=== PATIENT | female | born 1965 | race African-American/Black ===

== ENCOUNTER 2021-08-05 11:55 | Inpatient (IN) ==
[~2021-08-05 11:55] MED LIST: CLORAZEPATE 3.75 MG TABLET PO PRN; DEXTROSE 10% 250 ML BAG IV PRN; GLUCAGON 1 MG VIAL IM PRN; MORPHINE 2 MG/1 ML SYRINGE IV PRN; NITROGLYCERIN SL 0.4 MG TABLET SL PRN
[2021-08-05] MEDS ORDERED: SODIUM CHLORIDE 0.9% 1,000 ML IV SCH (14:00)
[2021-08-05 14:12] LABS: Basophils % 0.4 % (0.0-0.8); Eosinophils # 0.4 10*3/uL (0.0-0.87); Eosinophils % 4.8 % (0.00-10.9); Hemoglobin 11.5 GM/DL (12.0-16.0); Immature Granulocytes % 0.3 %; Immature Granulocytes Absolute 0.02 #; Lymphocytes # 4.2 10*3/uL (1.4-4.0); Lymphocytes % 57.2 % (21.3-54.2); Mean Corpuscular HGB Conc 31.9 GM/DL (32-36); Mean Corpuscular Volume 89.8 FL (87-102); Mean Platelet Volume 10.1 FL (9.6-12.0); Monocytes # 0.5 10*3/uL (0.11-0.8); Monocytes % 7.2 % (1.7-12.7); Neutrophils % 30.1 % (38.7-73.9); Platelet Count 261 T/CUMM (130-400); Red Blood Count 4.01 MC/CUMM (3.8-5.5); Red Cell Distribution Width 14.6 % (9.3-17.3); White Blood Count 7.3 T/CUMM (4-12)
[2021-08-05 14:33] LABS: Alanine Aminotransferase 19 U/L (13-56); Albumin 3.5 G/DL (3.4-5.0); Alkaline Phosphatase 52 U/L (45-117); Aspartate Amino Transferase 14 U/L (0-37); Bilirubin,Total < 0.39 MG/DL (0.20-1.00); Blood Urea Nitrogen 14 MG/DL (7-18); Calcium 9.1 MG/DL (8.5-10.1); Carbon Dioxide 31 MMOL/L (21-32); Chloride 106 MMOL/L (98-107); Glucose 101 MG/DL (74-106); Osmolality,Calculated 281.3 MOS/KG (273-304); Potassium 3.8 MMOL/L (3.5-5.1); Sodium 141 MMOL/L (136-145); Total Protein 7.8 G/DL (6.4-8.2)
[2021-08-05 14:35] LABS: Eosinophils 7 % (0-10); Lymphocytes 61 % (20-55); Total Cells Counted 100
[2021-08-05 14:36] LABS: Platelet Estimate Adequate
[2021-08-05 15:11] LABS: Arterial Base Excess iSTAT 3 MMOL/L (-2.5-2.5); Arterial Bicarbonate iSTAT 28.3 MMOL/L (20-26); Arterial O2 Saturation iSTAT 93 % (95-100); Arterial PCO2 iSTAT 44 MM HG (35-48); Arterial PO2 iSTAT 68 MM HG (80-95); Arterial Total CO2 iSTAT 30 MMO/L (23-27)
[2021-08-05] MEDS ORDERED: PANTOPRAZOLE 40 MG TABLET PO ONE (15:42)
[2021-08-05] MEDS ORDERED: DIAZEPAM 5 MG TABLET PO ONE (15:42)
[2021-08-05] MEDS: GABAPENTIN 300 MG CAPSULE PO SCH ×2 (15:58→21:18)
[2021-08-05] MEDS: METHOCARBAMOL 500 MG TABLET PO SCH ×2 (15:59→21:18)
[2021-08-05] MEDS: CHLORHEXIDINE 4% SOLN 118 ML BOTTLE TOP SCH ×2 (16:05→21:20)
[2021-08-05] MEDS: INSULIN REGULAR 100 UNIT/ML SUBCUT SCH ×2 (16:06→21:20)
[2021-08-05] MEDS ORDERED: DOXEPIN 25 MG CAPSULE PO SCH (21:00)
[2021-08-05] MEDS ORDERED: LATANOPROST 0.005% OPH SOLN 2.5 ML BOTTLE BOTH EYES SCH (21:00)
[2021-08-05] MEDS: risperiDONE 1 MG TABLET PO SCH (21:18)
[2021-08-05] MEDS: DIVALPROEX 500 MG TABLET PO SCH (21:19)
[2021-08-05] MEDS: CHLORHEXIDINE 0.12% ORAL RINSE 60 ML BOTTLE SWISH/SPIT SCH (21:20)
[2021-08-06] MEDS: CHLORHEXIDINE 4% SOLN 118 ML BOTTLE TOP SCH (04:06)
[2021-08-06] MEDS ORDERED: PAPAVERINE 60 MG/2 ML VIAL ONE (04:18)
[2021-08-06] MEDS ORDERED: VANCOMYCIN 500 MG VIAL ONE ×2 (04:19→08:26)
[2021-08-06] MEDS ORDERED: VANCOMYCIN 1,000 MG VIAL ONE (04:19)
[2021-08-06] MEDS ORDERED: CEFUROXIME INJ 1,500 MG in SODIUM CHLORIDE 0.9% 100 ML IV ONE (05:00)
[2021-08-06] MEDS ORDERED: PANTOPRAZOLE 40 MG TABLET PO ONE (06:00)
[2021-08-06] MEDS: INSULIN REGULAR 100 UNIT/ML SUBCUT SCH ×2 (06:00→17:06)
[2021-08-06] MEDS ORDERED: DIAZEPAM 5 MG TABLET PO ONE (06:00)
[2021-08-06] MEDS ORDERED: MIDAZOLAM 10 MG/2 ML VIAL ONE ×4 (06:07→09:40)
[2021-08-06] MEDS ORDERED: SUFentanil 250 MCG/5 ML AMP ONE ×2 (06:08→08:04)
[2021-08-06] MEDS ORDERED: SEVOFLURANE 1 UNIT/15 MINUTE INH ONE (06:08)
[2021-08-06] MEDS ORDERED: LACTATED RINGERS 1,000 ML IV ONE (06:11)
[2021-08-06] MEDS ORDERED: CALCIUM CHLORIDE 1,000 MG/10 ML VIAL IV ONE ×2 (06:11→10:31)
[2021-08-06] MEDS ORDERED: AMINOCAPROIC ACID 5,000 MG/20 ML VIAL ONE (06:11)
[2021-08-06] MEDS ORDERED: PHENYLEPHRINE DRIP 20 MG/250 ML PREMIX IV ONE (06:11)
[2021-08-06] MEDS ORDERED: SODIUM CHLORIDE 0.9% 250 ML IV ONE (06:11)
[2021-08-06] MEDS ORDERED: MINERAL OIL/PETROLATUM OPH OINT 3.5 GM TUBE ONE (06:11)
[2021-08-06] MEDS ORDERED: SODIUM CHLORIDE 0.9% 100 ML IV ONE (06:11)
[2021-08-06] MEDS ORDERED: LIDOCAINE 2% 5 ML VIAL ONE (06:11)
[2021-08-06] MEDS ORDERED: VECURONIUM 10 MG VIAL IV ONE ×3 (06:11→09:40)
[2021-08-06] MEDS ORDERED: SODIUM CHLORIDE 0.9% 1,000 ML IV ONE (06:11)
[2021-08-06] MEDS ORDERED: HEPARIN/NACL 0.9% 2 UNITS/ML 1,000 UNIT/500 ML BAG IV ONE (06:11)
[2021-08-06] MEDS ORDERED: FAMOTIDINE 20 MG/2 ML VIAL IV ONE (06:15)
[2021-08-06 07:28] LABS: ABG Base Excess 0.9 MMOL/L (-2.5-2.5); ABG HCO3 25.2 MMOL/L (20-26); ABG PCO2 33.4 MM HG (35-48); ABG PH 7.466 (7.35-7.45); ABG TCO2 21.7 MMOL/L (23-27); Glucose Heart Surgery 131 MG/DL (74-106); Hematocrit Heart Surgery 32.8 PERCENT (37-47); Hemoglobin Heart Surgery 10.6 G/DL (12.0-16.0); Ionized Calcium Arterial 1.13 MMOL/L (1.21-1.46); PCO2 Patient Temp Arterial 33.4 MMHG; PH Patient Temp Arterial 7.466; Patient Temperature 37 CELCIUS; Sodium Heart/CVR 141 MMOL/L (135-145)
[2021-08-06 07:37] LABS: Squamous Epithelial Cell,Urine Occasional /HPF (0-10)
[2021-08-06 07:38] LABS: Bilirubin,Urine Negative (Negative); Blood, Urine Negative (Negative); Glucose,Urine (UA) Negative (Negative); Ketones,Urine Negative (Negative); Nitrite,Urine Negative (Negative); Protein,Urine Negative (Negative); Urine Appearance Clear (Clear); Urine Color Straw (Yellow); Urine Specific Gravity 1.015 (1.001-1.035); Urine Urobilinogen 0.2 eU/dL (<2.0)
[2021-08-06] MEDS ORDERED: propofoL 200 MG/20 ML VIAL IV ONE (08:33)
[2021-08-06 09:05] LABS: Hematocrit Heart Surgery 22.6 PERCENT (37-47); Hemoglobin Heart Surgery 7.2 G/DL (12.0-16.0); PH Patient Temp Venous 7.451; PO2 Patient Temp Venous 46.1 MM HG; VBG Base Excess 2.7 MEQ/L (0-4); VBG HCO3 26.8 MEQ/L (24-28); VBG Oxygen Saturation 88.3 %; VBG PH 7.407; VBG PO2 56.3 MMHG (17-40); VBG Total CO2 26.1 MMOL/L
[2021-08-06 09:39] LABS: Hematocrit Heart Surgery 25.7 PERCENT (37-47); Hemoglobin Heart Surgery 8.3 G/DL (12.0-16.0); PCO2 Patient Temp Venous 36.6 MM HG; PH Patient Temp Venous 7.458; PO2 Patient Temp Venous 41.7 MM HG; Potassium Heart/CVR 4.3 MMOL/L (3.5-5.1); VBG Base Excess 2.3 MEQ/L (0-4); VBG HCO3 26.3 MEQ/L (24-28); VBG Oxygen Saturation 84.2 %; VBG PCO2 42.4 MMHG (41-51); VBG PH 7.413; VBG PO2 51.1 MMHG (17-40); VBG Total CO2 25.2 MMOL/L
[2021-08-06] MEDS ORDERED: SODIUM BICARBONATE 50 MEQ/50 ML VIAL IV ONE ×4 (09:39→18:04)
[2021-08-06] MEDS ORDERED: POTASSIUM CHLORIDE RIDER 20 MEQ/100 ML PREMIX IV ONE (09:40)
[2021-08-06] MEDS ORDERED: PHENYLEPHRINE DRIP 40 MG/250 ML PREMIX IV ONE (09:40)
[2021-08-06] MEDS ORDERED: NITROPRUSSIDE 50 MG/2 ML VIAL ONE (09:40)
[2021-08-06] MEDS ORDERED: CALCIUM CHLORIDE 1,000 MG/10 ML SYRINGE IV ONE (09:40)
[2021-08-06 10:04] LABS: PH Patient Temp Venous 7.378; PO2 Patient Temp Venous 41.3 MM HG; Potassium Heart/CVR 4.4 MMOL/L (3.5-5.1); VBG Base Excess 1.1 MEQ/L (0-4); VBG HCO3 25.1 MEQ/L (24-28); VBG Oxygen Saturation 71.1 %; VBG PH 7.378; VBG PO2 41.3 MMHG (17-40); VBG Total CO2 24.9 MMOL/L
[2021-08-06] MEDS ORDERED: THROMBIN TOPICAL (RECOMBINANT) 5,000 UNIT VIAL TOP ONE (10:17)
[2021-08-06 10:42] LABS: ABG Base Excess -1.1 MMOL/L (-2.5-2.5); ABG HCO3 23.5 MMOL/L (20-26); ABG PCO2 41.2 MM HG (35-48); ABG PH 7.373 (7.35-7.45); ABG TCO2 22.4 MMOL/L (23-27); Glucose Heart Surgery 209 MG/DL (74-106); Hematocrit Heart Surgery 25.5 PERCENT (37-47); Hemoglobin Heart Surgery 8.2 G/DL (12.0-16.0); Ionized Calcium Arterial 1.34 MMOL/L (1.21-1.46); PCO2 Patient Temp Arterial 41.2 MMHG; PH Patient Temp Arterial 7.373; Patient Temperature 37 CELCIUS; Potassium Heart/CVR 3.1 MMOL/L (3.5-5.1); Sodium Heart/CVR 139 MMOL/L (135-145)
[2021-08-06] MEDS ORDERED: ALBUMIN 25% 25 GM/100 ML VIAL IV ONE (10:44)
[2021-08-06] MEDS ORDERED: HEPARIN 10,000 UNIT/10 ML VIAL ONE (10:45)
[2021-08-06] MEDS ORDERED: PROTAMINE SULFATE 250 MG/25 ML VIAL IV ONE (10:45)
[2021-08-06] MEDS ORDERED: MAGNESIUM SULFATE 5 GM/10 ML VIAL IV ONE (10:45)
[2021-08-06] MEDS ORDERED: methylPREDNISolone SOD SUC 1,000 MG/8 ML VIAL ONE (10:45)
[2021-08-06] MEDS ORDERED: ALBUMIN 5% 12.5 GM/250 ML VIAL IV ONE (10:45)
[2021-08-06] MEDS ORDERED: DEXTROSE 5% KCL 20 MEQ 20 MEQ/1,000 ML BAG IV ONE (10:45)
[2021-08-06] MEDS ORDERED: MANNITOL 12.5 GM/50 ML VIAL IV ONE (10:46)
[2021-08-06] MEDS ORDERED: FUROSEMIDE 20 MG/2 ML VIAL ONE (10:46)
[2021-08-06] MEDS ORDERED: ALBUMIN 5% 25.0 GM/500 ML VIAL IV ONE (11:16)
[2021-08-06] MEDS ORDERED: INSULIN REGULAR 100 UNIT/ML IV ONE (12:05)
[2021-08-06] MEDS ORDERED: DEXTROSE 10% 250 ML BAG IV PRN ×2 (12:05)
[2021-08-06] MEDS ORDERED: CHLORHEXIDINE 4% SOLN 118 ML BOTTLE TOP PRN (12:05)
[2021-08-06] MEDS ORDERED: MAGNESIUM SULF RIDER 4 GM/100 ML PREMIX IV PRN (12:05)
[2021-08-06] MEDS ORDERED: SODIUM CHLORIDE 0.45% 1,000 ML IV SCH ×2 (12:05)
[2021-08-06] MEDS ORDERED: PHENYLEPHRINE DRIP 40 MG/250 ML PREMIX IV PRN (12:05)
[2021-08-06] MEDS ORDERED: ONDANSETRON 4 MG/2 ML VIAL IV PRN (12:05)
[2021-08-06] MEDS ORDERED: MIDAZOLAM 2 MG/2 ML VIAL IV PRN (12:05)
[2021-08-06] MEDS ORDERED: ACETAMINOPHEN 650 MG SUPP RECTAL PRN (12:05)
[2021-08-06] MEDS ORDERED: MIDAZOLAM 10 MG/2 ML VIAL IV PRN (12:05)
[2021-08-06] MEDS ORDERED: MAGNESIUM SULF RIDER 2 GM/50 ML PREMIX IV PRN (12:05)
[2021-08-06] MEDS ORDERED: NITROPRUSSIDE 100 MG in DEXTROSE 5% 250 ML IV PRN (12:05)
[2021-08-06] MEDS ORDERED: LACTATED RINGERS 250 ML IV PRN (12:05)
[2021-08-06] MEDS ORDERED: CALCIUM CHLORIDE 1,000 MG/10 ML SYRINGE IV PRN (12:05)
[2021-08-06] MEDS ORDERED: VECURONIUM 10 MG VIAL IV PRN ×2 (12:05)
[2021-08-06] MEDS ORDERED: INSULIN REGULAR 100 UNIT/ML IV PRN (12:05)
[2021-08-06 12:12] LABS: ABG Base Excess -0.8 MMOL/L (-2.5-2.5); ABG HCO3 23.7 MMOL/L (20-26); ABG Oxygen Saturation 99.7 % (95-100); ABG PH 7.446 (7.35-7.45); ABG TCO2 20.8 MMOL/L (23-27); Glucose Heart Surgery 177 MG/DL (74-106); Hematocrit Heart Surgery 28.2 PERCENT (37-47); Hemoglobin Heart Surgery 9.1 G/DL (12.0-16.0); Potassium Heart/CVR 3.8 MMOL/L (3.5-5.1)
[2021-08-06 12:20] LABS: Basophils % 0.1 % (0.0-0.8); Eosinophils # 0.2 10*3/uL (0.0-0.87); Eosinophils % 1.1 % (0.00-10.9); Hematocrit 28.2 VOL% (35.7-47.0); Hemoglobin 9.1 GM/DL (12.0-16.0); Immature Granulocytes Absolute 0.14 #; Lymphocytes # 3.1 10*3/uL (1.4-4.0); Lymphocytes % 22.1 % (21.3-54.2); Mean Corpuscular HGB Conc 32.3 GM/DL (32-36); Mean Corpuscular Volume 89.2 FL (87-102); Mean Platelet Volume 10.1 FL (9.6-12.0); Monocytes # 0.7 10*3/uL (0.11-0.8); Neutrophils % 70.7 % (38.7-73.9); Platelet Count 172 T/CUMM (130-400); Red Blood Count 3.16 MC/CUMM (3.8-5.5); Red Cell Distribution Width 14.4 % (9.3-17.3); White Blood Count 13.9 T/CUMM (4-12)
[2021-08-06 12:25] LABS: CKMB % 4.34 %
[2021-08-06 12:27] LABS: INR 1.1; Partial Thromboplastin Time 27.3 SECS (23.8-32.1)
[2021-08-06 12:29] LABS: High Sensitive Troponin I* 3600.8 ng/L (0-54)
[2021-08-06] MEDS: POTASSIUM CHLORIDE RIDER 20 MEQ/100 ML PREMIX IV PRN ×2 (12:36→17:42)
[2021-08-06 12:44] LABS: Albumin 3.3 G/DL (3.4-5.0); Bilirubin,Total 0.4 MG/DL (0.20-1.00); Calcium 9.6 MG/DL (8.5-10.1); Osmolality,Calculated 277.7 MOS/KG (273-304); Potassium 3.7 MMOL/L (3.5-5.1); Total Protein 6.8 G/DL (6.4-8.2)
[2021-08-06] MEDS ORDERED: DIVALPROEX 500 MG TABLET PO SCH (13:00)
[2021-08-06] MEDS: POTASSIUM CHLORIDE RIDER 10 MEQ/100 ML PREMIX IV PRN ×3 (13:06→23:18)
[2021-08-06] MEDS ORDERED: NITROGLYCERIN DRIP 50 MG/250 ML BOTTLE IV ONE (13:20)
[2021-08-06] MEDS ORDERED: NITROGLYCERIN DRIP 50 MG/250 ML BOTTLE IV PRN (13:20)
[2021-08-06 14:01] LABS: ABG Base Excess -3.2 MMOL/L (-2.5-2.5); ABG HCO3 21.8 MMOL/L (20-26); ABG Oxygen Saturation 99.2 % (95-100); ABG PCO2 30.6 MM HG (35-48); ABG PH 7.428 (7.35-7.45); ABG TCO2 18.2 MMOL/L (23-27); Glucose Heart Surgery 215 MG/DL (74-106); Hemoglobin Heart Surgery 10.7 G/DL (12.0-16.0); Potassium Heart/CVR 4.6 MMOL/L (3.5-5.1)
[2021-08-06] MEDS: INSULIN REGULAR DRIP 100 ML IV SCH (14:22)
[2021-08-06] MEDS: ALBUMIN 5% 12.5 GM/250 ML VIAL IV PRN ×3 (14:41→23:12)
[2021-08-06] MEDS: VALPROIC ACID 250 MG/5 ML UDCUP PO SCH ×2 (14:46→20:55)
[2021-08-06] MEDS ORDERED: LACTATED RINGERS 1,000 ML IV PRN (15:53)
[2021-08-06 16:23] LABS: ABG Base Excess -6.3 MMOL/L (-2.5-2.5); ABG HCO3 19.3 MMOL/L (20-26); ABG Oxygen Saturation 98.6 % (95-100); ABG PCO2 43.1 MM HG (35-48); ABG TCO2 18.7 MMOL/L (23-27); Glucose Heart Surgery 202 MG/DL (74-106); Hematocrit Heart Surgery 30.7 PERCENT (37-47); Hemoglobin Heart Surgery 9.9 G/DL (12.0-16.0); Potassium Heart/CVR 4.2 MMOL/L (3.5-5.1)
[2021-08-06] MEDS: METHOCARBAMOL 500 MG TABLET PO SCH (17:06)
[2021-08-06] MEDS: risperiDONE 1 MG TABLET PO SCH ×2 (17:06→20:55)
[2021-08-06] MEDS: DIVALPROEX 500 MG TABLET PO SCH (17:07)
[2021-08-06] MEDS: GABAPENTIN 300 MG CAPSULE PO SCH (17:07)
[2021-08-06] MEDS: CHLORHEXIDINE 0.12% ORAL RINSE 60 ML BOTTLE SWISH/SPIT SCH ×2 (17:07→20:55)
[2021-08-06 17:17] LABS: ABG Base Excess -4.9 MMOL/L (-2.5-2.5); ABG HCO3 20.4 MMOL/L (20-26); ABG Oxygen Saturation 98.4 % (95-100); ABG PCO2 40.3 MM HG (35-48); ABG PH 7.322 (7.35-7.45); ABG TCO2 19.1 MMOL/L (23-27); Glucose Heart Surgery 194 MG/DL (74-106); Hematocrit Heart Surgery 30.9 PERCENT (37-47); Potassium Heart/CVR 3.7 MMOL/L (3.5-5.1)
[2021-08-06 17:39] LABS: VBG Base Excess -4.2 MEQ/L (0-4); VBG HCO3 20.3 MEQ/L (24-28); VBG Oxygen Saturation 58.5 %; VBG PCO2 50.2 MMHG (41-51); VBG PH 7.269; VBG PO2 37.7 MMHG (17-40); VBG Total CO2 21.4 MMOL/L
[2021-08-06 17:59] LABS: ABG Base Excess -6.1 MMOL/L (-2.5-2.5); ABG HCO3 19.4 MMOL/L (20-26); ABG Oxygen Saturation 98.5 % (95-100); ABG PCO2 34.8 MM HG (35-48); ABG PH 7.343 (7.35-7.45); ABG TCO2 17.4 MMOL/L (23-27); Glucose Heart Surgery 180 MG/DL (74-106); Hematocrit Heart Surgery 29.8 PERCENT (37-47); Hemoglobin Heart Surgery 9.6 G/DL (12.0-16.0); Potassium Heart/CVR 3.9 MMOL/L (3.5-5.1)
[2021-08-06] MEDS ORDERED: FUROSEMIDE 40 MG/4 ML VIAL IV ONE (18:04)
[2021-08-06] MEDS ORDERED: SODIUM BICARBONATE 50 MEQ/50 ML SYRINGE IV ONE (18:09)
[2021-08-06] MEDS: CEFUROXIME INJ 1,500 MG in SODIUM CHLORIDE 0.9% 100 ML IV SCH (19:28)
[2021-08-06 19:58] LABS: ABG Base Excess -4.5 MMOL/L (-2.5-2.5); ABG HCO3 20.7 MMOL/L (20-26); ABG Oxygen Saturation 98.6 % (95-100); ABG PCO2 31.3 MM HG (35-48); ABG PH 7.401 (7.35-7.45); ABG TCO2 17.8 MMOL/L (23-27); Glucose Heart Surgery 184 MG/DL (74-106); Hematocrit Heart Surgery 30.5 PERCENT (37-47); Hemoglobin Heart Surgery 9.9 G/DL (12.0-16.0); Potassium Heart/CVR 4.1 MMOL/L (3.5-5.1)
[2021-08-06] MEDS: HYDROmorphone 1 MG/1 ML SYRINGE IV PRN (20:13)
[2021-08-06 20:17] LABS: CKMB % 4.72 %
[2021-08-06 20:20] LABS: High Sensitive Troponin I* 4772.5 ng/L (0-54)
[2021-08-06] MEDS: DEXMEDETOMIDINE 200 MCG in SODIUM CHLORIDE 0.9% 48 ML IV PRN (21:56)
[2021-08-06 22:01] LABS: ABG Base Excess -0.6 MMOL/L (-2.5-2.5); ABG HCO3 23.9 MMOL/L (20-26); ABG Oxygen Saturation 98.8 % (95-100); ABG PCO2 30.3 MM HG (35-48); ABG PH 7.474 (7.35-7.45); ABG TCO2 20.3 MMOL/L (23-27); Glucose Heart Surgery 166 MG/DL (74-106); Hemoglobin Heart Surgery 9.7 G/DL (12.0-16.0); Potassium Heart/CVR 4.2 MMOL/L (3.5-5.1)
[2021-08-06] MEDS: ACETAMINOPHEN 325 MG/10.15 ML UDCUP PO PRN (22:55)
[2021-08-06 23:09] LABS: ABG Base Excess 1.4 MMOL/L (-2.5-2.5); ABG HCO3 25.7 MMOL/L (20-26); ABG Oxygen Saturation 98.6 % (95-100); ABG PCO2 33.4 MM HG (35-48); ABG PH 7.475 (7.35-7.45); ABG TCO2 22.4 MMOL/L (23-27); Glucose Heart Surgery 150 MG/DL (74-106); Hematocrit Heart Surgery 29.8 PERCENT (37-47); Hemoglobin Heart Surgery 9.6 G/DL (12.0-16.0); Potassium Heart/CVR 3.9 MMOL/L (3.5-5.1)
[2021-08-07] MEDS: INSULIN REGULAR DRIP 100 ML IV SCH (00:10)
[2021-08-07] MEDS ORDERED: FUROSEMIDE 40 MG/4 ML VIAL IV ONE (01:02)
[2021-08-07] MEDS ORDERED: FUROSEMIDE 40 MG/4 ML VIAL ONE (01:05)
[2021-08-07 01:09] LABS: ABG Base Excess 2.2 MMOL/L (-2.5-2.5); ABG HCO3 26.4 MMOL/L (20-26); ABG Oxygen Saturation 98.6 % (95-100); ABG PCO2 33.3 MM HG (35-48); ABG PH 7.489 (7.35-7.45); ABG TCO2 23.3 MMOL/L (23-27); Glucose Heart Surgery 146 MG/DL (74-106); Hematocrit Heart Surgery 27.3 PERCENT (37-47); Hemoglobin Heart Surgery 8.8 G/DL (12.0-16.0); Potassium Heart/CVR 3.9 MMOL/L (3.5-5.1)
[2021-08-07] MEDS: POTASSIUM CHLORIDE RIDER 20 MEQ/100 ML PREMIX IV PRN ×2 (01:16→04:28)
[2021-08-07] MEDS: POTASSIUM CHLORIDE RIDER 10 MEQ/100 ML PREMIX IV PRN (02:05)
[2021-08-07] MEDS: DEXMEDETOMIDINE 200 MCG in SODIUM CHLORIDE 0.9% 48 ML IV PRN (02:37)
[2021-08-07 03:53] LABS: ABG HCO3 27.1 MMOL/L (20-26); ABG Oxygen Saturation 98.3 % (95-100); ABG PCO2 38.2 MM HG (35-48); ABG PH 7.457 (7.35-7.45); ABG TCO2 24.4 MMOL/L (23-27); Glucose Heart Surgery 150 MG/DL (74-106); Hematocrit Heart Surgery 31.1 PERCENT (37-47); Hemoglobin Heart Surgery 10.1 G/DL (12.0-16.0); Potassium Heart/CVR 3.9 MMOL/L (3.5-5.1)
[2021-08-07 03:55] LABS: Basophils % 0.1 % (0.0-0.8); Hematocrit 30.3 VOL% (35.7-47.0); Immature Granulocytes % 0.5 %; Immature Granulocytes Absolute 0.07 #; Lymphocytes # 1.6 10*3/uL (1.4-4.0); Lymphocytes % 11.5 % (21.3-54.2); Mean Corpuscular Volume 87.3 FL (87-102); Mean Platelet Volume 10.4 FL (9.6-12.0); Monocytes # 0.6 10*3/uL (0.11-0.8); Monocytes % 4.5 % (1.7-12.7); Neutrophils % 83.4 % (38.7-73.9); Platelet Count 163 T/CUMM (130-400); Red Blood Count 3.47 MC/CUMM (3.8-5.5); Red Cell Distribution Width 14.6 % (9.3-17.3); White Blood Count 14.1 T/CUMM (4-12)
[2021-08-07 04:12] LABS: CKMB % 4.17 %
[2021-08-07 04:15] LABS: High Sensitive Troponin I* 9554.7 ng/L (0-54)
[2021-08-07 04:17] LABS: Bilirubin,Direct 0.13 MG/DL (0.0-0.20); Bilirubin,Total 0.4 MG/DL (0.20-1.00); Calcium 8.9 MG/DL (8.5-10.1); Osmolality,Calculated 282.3 MOS/KG (273-304); Potassium 3.9 MMOL/L (3.5-5.1); Total Protein 7.2 G/DL (6.4-8.2)
[2021-08-07 05:24] LABS: ABG Base Excess 2.9 MMOL/L (-2.5-2.5); ABG Oxygen Saturation 97.7 % (95-100); ABG PCO2 40.7 MM HG (35-48); ABG PH 7.435 (7.35-7.45); ABG TCO2 24.9 MMOL/L (23-27); Glucose Heart Surgery 145 MG/DL (74-106); Hematocrit Heart Surgery 30.5 PERCENT (37-47); Hemoglobin Heart Surgery 9.9 G/DL (12.0-16.0); Potassium Heart/CVR 3.8 MMOL/L (3.5-5.1)
[2021-08-07] MEDS ORDERED: LOSARTAN 50 MG TABLET PO ONE (06:07)
[2021-08-07] MEDS: HYDROmorphone 1 MG/1 ML SYRINGE IV PRN (06:22)
[2021-08-07 06:44] LABS: ABG Base Excess 3.3 MMOL/L (-2.5-2.5); ABG HCO3 27.3 MMOL/L (20-26); ABG Oxygen Saturation 95.6 % (95-100); ABG PCO2 44.4 MM HG (35-48); ABG PH 7.413 (7.35-7.45); ABG PO2 79.3 MM HG (80-95); ABG TCO2 25.7 MMOL/L (23-27); Glucose Heart Surgery 153 MG/DL (74-106); Hematocrit Heart Surgery 31.6 PERCENT (37-47); Hemoglobin Heart Surgery 10.2 G/DL (12.0-16.0); Potassium Heart/CVR 3.9 MMOL/L (3.5-5.1)
[2021-08-07] MEDS: CEFUROXIME INJ 1,500 MG in SODIUM CHLORIDE 0.9% 100 ML IV SCH ×2 (06:49→18:08)
[2021-08-07] MEDS: ASPIRIN EC 81 MG TABLET PO SCH (08:08)
[2021-08-07] MEDS: METOPROLOL TARTRATE 25 MG TABLET PO SCH ×2 (08:08→21:50)
[2021-08-07] MEDS: CHLORHEXIDINE 0.12% ORAL RINSE 60 ML BOTTLE SWISH/SPIT SCH ×2 (08:08→21:52)
[2021-08-07] MEDS: risperiDONE 1 MG TABLET PO SCH ×2 (08:08→21:51)
[2021-08-07] MEDS: PANTOPRAZOLE 40 MG TABLET PO SCH (08:08)
[2021-08-07] MEDS: GABAPENTIN 300 MG CAPSULE PO SCH ×3 (08:08→21:50)
[2021-08-07] MEDS: LEVOTHYROXINE 75 MCG TABLET PO SCH (08:08)
[2021-08-07] MEDS: DIVALPROEX 500 MG TABLET PO SCH ×2 (08:10→21:50)
[2021-08-07] MEDS: ACETAMINOPHEN 325 MG/10.15 ML UDCUP PO PRN (08:11)
[2021-08-07] MEDS: CITALOPRAM 40 MG TABLET PO SCH (08:18)
[2021-08-07] MEDS: PIOGLITAZONE 15 MG TABLET PO SCH (08:18)
[2021-08-07] MEDS ORDERED: MAGNESIUM SULF RIDER 2 GM/50 ML PREMIX IV PRN (09:14)
[2021-08-07] MEDS ORDERED: GLUCAGON 1 MG VIAL IM PRN (09:14)
[2021-08-07] MEDS ORDERED: DEXTROSE 10% 250 ML BAG IV PRN (09:14)
[2021-08-07] MEDS ORDERED: MAGNESIUM HYDROXIDE SUSP 30 ML UDCUP PO PRN (09:14)
[2021-08-07] MEDS ORDERED: ZALEPLON 5 MG CAPSULE PO PRN (09:14)
[2021-08-07] MEDS ORDERED: ACETAMINOPHEN 325 MG TABLET PO PRN (09:14)
[2021-08-07] MEDS ORDERED: MAGNESIUM SULF RIDER 4 GM/100 ML PREMIX IV PRN (09:14)
[2021-08-07] MEDS ORDERED: ONDANSETRON 4 MG/2 ML VIAL IV PRN (09:14)
[2021-08-07] MEDS ORDERED: ALUMINUM/MAGNES/SIMETH MAX STR 30 ML UDCUP PO PRN (09:14)
[2021-08-07] MEDS ORDERED: SODIUM CHLOR 0.45% KCL 20 MEQ 20 MEQ/1,000 ML BAG IV SCH (09:30)
[2021-08-07 14:30] LABS: Arterial Base Excess iSTAT 3 MMOL/L (-2.5-2.5); Arterial Bicarbonate iSTAT 28.4 MMOL/L (20-26); Arterial O2 Saturation iSTAT 96 % (95-100); Arterial PCO2 iSTAT 45 MM HG (35-48); Arterial PO2 iSTAT 79 MM HG (80-95); Arterial Total CO2 iSTAT 30 MMO/L (23-27)
[2021-08-07 15:26] LABS: CKMB % 2.59 %; High Sensitive Troponin I* 7035.5 ng/L (0-54)
[2021-08-07] MEDS: DOXEPIN 25 MG CAPSULE PO SCH (21:50)
[2021-08-07] MEDS: LATANOPROST 0.005% OPH SOLN 2.5 ML BOTTLE BOTH EYES SCH (21:55)
[2021-08-08 05:00] LABS: Basophils % 0.1 % (0.0-0.8); Eosinophils % 0.1 % (0.00-10.9); Hematocrit 29.6 VOL% (35.7-47.0); Hemoglobin 9.6 GM/DL (12.0-16.0); Immature Granulocytes % 0.7 %; Immature Granulocytes Absolute 0.14 #; Lymphocytes # 4.4 10*3/uL (1.4-4.0); Lymphocytes % 22.9 % (21.3-54.2); Mean Corpuscular HGB Conc 32.4 GM/DL (32-36); Mean Corpuscular Volume 89.7 FL (87-102); Mean Platelet Volume 10.5 FL (9.6-12.0); Monocytes # 1.4 10*3/uL (0.11-0.8); Monocytes % 7.1 % (1.7-12.7); Neutrophils % 69.1 % (38.7-73.9); Platelet Count 174 T/CUMM (130-400); Red Cell Distribution Width 14.8 % (9.3-17.3)
[2021-08-08 05:22] LABS: Alanine Aminotransferase 23 U/L (13-56); Albumin 3.6 G/DL (3.4-5.0); Alkaline Phosphatase 27 U/L (45-117); Aspartate Amino Transferase 70 U/L (0-37); Bilirubin,Direct < 0.100 MG/DL (0.0-0.20); Bilirubin,Total < 0.39 MG/DL (0.20-1.00); Blood Urea Nitrogen 12 MG/DL (7-18); Calcium 8.9 MG/DL (8.5-10.1); Carbon Dioxide 31 MMOL/L (21-32); Chloride 102 MMOL/L (98-107); Glucose 167 MG/DL (74-106); Osmolality,Calculated 278.7 MOS/KG (273-304); Potassium 4.1 MMOL/L (3.5-5.1); Sodium 138 MMOL/L (136-145)
[2021-08-08 05:33] LABS: Albumin 3.4 G/DL (3.4-5.0); Bilirubin,Direct 0.15 MG/DL (0.0-0.20); Bilirubin,Indirect 0.3 MG/DL (0.0-1.0); Bilirubin,Total 0.4 MG/DL (0.20-1.00); CKMB % 1.26 %; Total Protein 6.9 G/DL (6.4-8.2)
[2021-08-08 05:34] LABS: High Sensitive Troponin I* 6442.2 ng/L (0-54)
[2021-08-08] MEDS ORDERED: FUROSEMIDE 40 MG/4 ML VIAL IV ONE (06:00)
[2021-08-08] MEDS: DOCUSATE SODIUM 100 MG CAPSULE PO SCH (08:48)
[2021-08-08] MEDS: DIVALPROEX 500 MG TABLET PO SCH ×2 (08:48→20:14)
[2021-08-08] MEDS: METOPROLOL TARTRATE 25 MG TABLET PO SCH ×2 (08:48→20:15)
[2021-08-08] MEDS: risperiDONE 1 MG TABLET PO SCH ×2 (08:49→20:15)
[2021-08-08] MEDS: CHLORHEXIDINE 0.12% ORAL RINSE 60 ML BOTTLE SWISH/SPIT SCH ×2 (08:49→20:15)
[2021-08-08] MEDS: CITALOPRAM 40 MG TABLET PO SCH (08:49)
[2021-08-08] MEDS: FERROUS SULFATE 325 MG TABLET PO SCH (08:49)
[2021-08-08] MEDS: PANTOPRAZOLE 40 MG TABLET PO SCH (08:49)
[2021-08-08] MEDS: PIOGLITAZONE 15 MG TABLET PO SCH (08:49)
[2021-08-08] MEDS: GABAPENTIN 300 MG CAPSULE PO SCH ×3 (08:49→20:15)
[2021-08-08] MEDS: ASPIRIN EC 81 MG TABLET PO SCH (08:49)
[2021-08-08] MEDS: LEVOTHYROXINE 75 MCG TABLET PO SCH (08:54)
[2021-08-08] MEDS ORDERED: DEXTROSE 50% 25 GM/50 ML VIAL IV PRN (17:52)
[2021-08-08] MEDS: INSULIN LISPRO 100 UNIT/ML SUBCUT SCH (20:15)
[2021-08-08] MEDS: DOXEPIN 25 MG CAPSULE PO SCH (20:15)
[2021-08-08] MEDS: LATANOPROST 0.005% OPH SOLN 2.5 ML BOTTLE BOTH EYES SCH (20:15)
[2021-08-09 04:30] LABS: Basophils # 0.1 10*3/uL (0.0-0.2); Basophils % 0.4 % (0.0-0.8); Eosinophils # 0.5 10*3/uL (0.0-0.87); Eosinophils % 3.3 % (0.00-10.9); Hematocrit 29.4 VOL% (35.7-47.0); Hemoglobin 9.3 GM/DL (12.0-16.0); Immature Granulocytes % 0.4 %; Immature Granulocytes Absolute 0.07 #; Mean Corpuscular HGB Conc 31.6 GM/DL (32-36); Mean Platelet Volume 10.2 FL (9.6-12.0); Monocytes # 1.1 10*3/uL (0.11-0.8); Monocytes % 7.1 % (1.7-12.7); Neutrophils % 50.8 % (38.7-73.9); Platelet Count 184 T/CUMM (130-400); Red Blood Count 3.23 MC/CUMM (3.8-5.5); Red Cell Distribution Width 14.5 % (9.3-17.3); White Blood Count 15.8 T/CUMM (4-12)
[2021-08-09 04:53] LABS: Albumin 3.2 G/DL (3.4-5.0); Bilirubin,Direct 0.11 MG/DL (0.0-0.20); Bilirubin,Total 0.4 MG/DL (0.20-1.00); Calcium 8.6 MG/DL (8.5-10.1); Osmolality,Calculated 280.4 MOS/KG (273-304); Potassium 3.6 MMOL/L (3.5-5.1); Total Protein 6.8 G/DL (6.4-8.2)
[2021-08-09 05:15] LABS: Alanine Aminotransferase 23 U/L (13-56); Albumin 3.2 G/DL (3.4-5.0); Alkaline Phosphatase 30 U/L (45-117); Aspartate Amino Transferase 48 U/L (0-37); Bilirubin,Direct < 0.100 MG/DL (0.0-0.20); Bilirubin,Indirect 0.3 MG/DL (0.0-1.0); Total Protein 6.8 G/DL (6.4-8.2)
[2021-08-09] MEDS: POTASSIUM CHLORIDE 20 MEQ TABLET PO PRN (06:02)
[2021-08-09] MEDS: DOCUSATE SODIUM 100 MG CAPSULE PO SCH (08:23)
[2021-08-09] MEDS: PANTOPRAZOLE 40 MG TABLET PO SCH (08:23)
[2021-08-09] MEDS: PIOGLITAZONE 15 MG TABLET PO SCH (08:23)
[2021-08-09] MEDS: DIVALPROEX 500 MG TABLET PO SCH ×2 (08:23→20:28)
[2021-08-09] MEDS: FERROUS SULFATE 325 MG TABLET PO SCH (08:23)
[2021-08-09] MEDS: risperiDONE 1 MG TABLET PO SCH ×2 (08:23→20:27)
[2021-08-09] MEDS: METOPROLOL TARTRATE 25 MG TABLET PO SCH ×2 (08:23→08:30)
[2021-08-09] MEDS: CITALOPRAM 40 MG TABLET PO SCH (08:23)
[2021-08-09] MEDS: INSULIN LISPRO 100 UNIT/ML SUBCUT SCH ×4 (08:23→20:33)
[2021-08-09] MEDS: LEVOTHYROXINE 75 MCG TABLET PO SCH (08:23)
[2021-08-09] MEDS: GABAPENTIN 300 MG CAPSULE PO SCH ×3 (08:23→20:28)
[2021-08-09] MEDS: ASPIRIN EC 81 MG TABLET PO SCH (08:24)
[2021-08-09] MEDS: CHLORHEXIDINE 0.12% ORAL RINSE 60 ML BOTTLE SWISH/SPIT SCH ×2 (08:24→20:27)
[2021-08-09] MEDS: METOPROLOL SUCCINATE XL 25 MG TABLET PO SCH (08:34)
[2021-08-09] MEDS: metFORMIN 850 MG TABLET PO SCH ×2 (09:26→20:27)
[2021-08-09] MEDS: DOXEPIN 25 MG CAPSULE PO SCH (20:28)
[2021-08-09] MEDS: LATANOPROST 0.005% OPH SOLN 2.5 ML BOTTLE BOTH EYES SCH (20:33)
[2021-08-10 05:52] LABS: Basophils % 0.3 % (0.0-0.8); Eosinophils # 0.5 10*3/uL (0.0-0.87); Eosinophils % 3.9 % (0.00-10.9); Hematocrit 29.1 VOL% (35.7-47.0); Hemoglobin 9.3 GM/DL (12.0-16.0); Immature Granulocytes % 0.3 %; Immature Granulocytes Absolute 0.04 #; Lymphocytes # 4.1 10*3/uL (1.4-4.0); Lymphocytes % 35.1 % (21.3-54.2); Mean Corpuscular Volume 91.5 FL (87-102); Monocytes # 0.7 10*3/uL (0.11-0.8); Monocytes % 5.8 % (1.7-12.7); Neutrophils % 54.6 % (38.7-73.9); Platelet Count 216 T/CUMM (130-400); Red Blood Count 3.18 MC/CUMM (3.8-5.5); Red Cell Distribution Width 14.5 % (9.3-17.3); White Blood Count 11.7 T/CUMM (4-12)
[2021-08-10 06:11] LABS: Calcium 8.7 MG/DL (8.5-10.1); Osmolality,Calculated 282.3 MOS/KG (273-304); Potassium 3.6 MMOL/L (3.5-5.1)
[2021-08-10] MEDS: POTASSIUM CHLORIDE 20 MEQ TABLET PO PRN (06:29)
[2021-08-10] MEDS: INSULIN LISPRO 100 UNIT/ML SUBCUT SCH ×4 (07:44→20:28)
[2021-08-10] MEDS: GABAPENTIN 300 MG CAPSULE PO SCH ×4 (08:18→20:15)
[2021-08-10] MEDS: POLYETHYLENE GLYCOL POWDER 17 GM PACK PO SCH (08:18)
[2021-08-10] MEDS: METOPROLOL SUCCINATE XL 25 MG TABLET PO SCH (08:18)
[2021-08-10] MEDS: DIVALPROEX 500 MG TABLET PO SCH ×2 (08:18→20:15)
[2021-08-10] MEDS: ASPIRIN EC 81 MG TABLET PO SCH (08:18)
[2021-08-10] MEDS: LEVOTHYROXINE 75 MCG TABLET PO SCH (08:18)
[2021-08-10] MEDS: CITALOPRAM 40 MG TABLET PO SCH (08:18)
[2021-08-10] MEDS: PANTOPRAZOLE 40 MG TABLET PO SCH (08:18)
[2021-08-10] MEDS: PIOGLITAZONE 15 MG TABLET PO SCH (08:18)
[2021-08-10] MEDS: DOCUSATE SODIUM 100 MG CAPSULE PO SCH (08:18)
[2021-08-10] MEDS: FERROUS SULFATE 325 MG TABLET PO SCH (08:19)
[2021-08-10] MEDS: metFORMIN 850 MG TABLET PO SCH ×2 (08:19→20:15)
[2021-08-10] MEDS: risperiDONE 1 MG TABLET PO SCH ×2 (08:19→20:15)
[2021-08-10] MEDS: CHLORHEXIDINE 0.12% ORAL RINSE 60 ML BOTTLE SWISH/SPIT SCH ×2 (08:20→20:16)
[2021-08-10] MEDS ORDERED: DILTIAZEM CD 120 MG CAPSULE PO SCH (09:00)
[2021-08-10] MEDS: DOXEPIN 25 MG CAPSULE PO SCH (20:15)
[2021-08-10] MEDS: LATANOPROST 0.005% OPH SOLN 2.5 ML BOTTLE BOTH EYES SCH (20:28)
[2021-08-11 05:06] LABS: Basophils % 0.4 % (0.0-0.8); Eosinophils # 0.6 10*3/uL (0.0-0.87); Hemoglobin 8.9 GM/DL (12.0-16.0); Immature Granulocytes % 0.5 %; Immature Granulocytes Absolute 0.05 #; Lymphocytes # 4.4 10*3/uL (1.4-4.0); Mean Corpuscular HGB Conc 31.8 GM/DL (32-36); Mean Corpuscular Volume 92.4 FL (87-102); Mean Platelet Volume 9.9 FL (9.6-12.0); Monocytes # 0.7 10*3/uL (0.11-0.8); Monocytes % 6.6 % (1.7-12.7); NRBC # 0.02 10*3/uL; Neutrophils % 44.5 % (38.7-73.9); Platelet Count 235 T/CUMM (130-400); Red Blood Count 3.03 MC/CUMM (3.8-5.5); Red Cell Distribution Width 14.4 % (9.3-17.3); White Blood Count 10.5 T/CUMM (4-12)
[2021-08-11 05:14] LABS: Alanine Aminotransferase 28 U/L (13-56); Albumin 2.9 G/DL (3.4-5.0); Alkaline Phosphatase 44 U/L (45-117); Aspartate Amino Transferase 33 U/L (0-37); Bilirubin,Direct < 0.100 MG/DL (0.0-0.20); Bilirubin,Total < 0.39 MG/DL (0.20-1.00); Blood Urea Nitrogen 11 MG/DL (7-18); Calcium 8.5 MG/DL (8.5-10.1); Carbon Dioxide 31 MMOL/L (21-32); Chloride 103 MMOL/L (98-107); Glucose 131 MG/DL (74-106); Osmolality,Calculated 273.8 MOS/KG (273-304); Potassium 3.4 MMOL/L (3.5-5.1); Sodium 137 MMOL/L (136-145); Total Protein 6.7 G/DL (6.4-8.2)
[2021-08-11 05:15] LABS: Bilirubin,Indirect 0.3 MG/DL (0.0-1.0)
[2021-08-11] MEDS: POTASSIUM CHLORIDE 20 MEQ TABLET PO PRN ×2 (06:20→08:03)
[2021-08-11] MEDS: CHLORHEXIDINE 0.12% ORAL RINSE 60 ML BOTTLE SWISH/SPIT SCH ×2 (08:00→20:50)
[2021-08-11] MEDS: PIOGLITAZONE 15 MG TABLET PO SCH (08:03)
[2021-08-11] MEDS: DIVALPROEX 500 MG TABLET PO SCH ×2 (08:03→20:39)
[2021-08-11] MEDS: LEVOTHYROXINE 75 MCG TABLET PO SCH (08:03)
[2021-08-11] MEDS: DILTIAZEM CD 120 MG CAPSULE PO SCH ×2 (08:03→20:40)
[2021-08-11] MEDS: CITALOPRAM 40 MG TABLET PO SCH (08:03)
[2021-08-11] MEDS: POLYETHYLENE GLYCOL POWDER 17 GM PACK PO SCH (08:03)
[2021-08-11] MEDS: FERROUS SULFATE 325 MG TABLET PO SCH (08:04)
[2021-08-11] MEDS: METOPROLOL SUCCINATE XL 25 MG TABLET PO SCH (08:04)
[2021-08-11] MEDS: GABAPENTIN 300 MG CAPSULE PO SCH ×3 (08:04→20:39)
[2021-08-11] MEDS: metFORMIN 850 MG TABLET PO SCH ×2 (08:04→20:38)
[2021-08-11] MEDS: DOCUSATE SODIUM 100 MG CAPSULE PO SCH (08:04)
[2021-08-11] MEDS: ASPIRIN EC 81 MG TABLET PO SCH (08:04)
[2021-08-11] MEDS: PANTOPRAZOLE 40 MG TABLET PO SCH (08:04)
[2021-08-11] MEDS: risperiDONE 1 MG TABLET PO SCH ×2 (08:07→20:39)
[2021-08-11] MEDS: INSULIN LISPRO 100 UNIT/ML SUBCUT SCH ×4 (08:19→20:50)
[2021-08-11] MEDS: DOXEPIN 25 MG CAPSULE PO SCH (20:39)
[2021-08-11] MEDS: LATANOPROST 0.005% OPH SOLN 2.5 ML BOTTLE BOTH EYES SCH (20:50)
[2021-08-11] MEDS ORDERED: ATORVASTATIN 40 MG TABLET PO SCH (21:00)
[2021-08-12 05:03] LABS: Basophils % 0.3 % (0.0-0.8); Eosinophils # 0.7 10*3/uL (0.0-0.87); Eosinophils % 6.1 % (0.00-10.9); Hematocrit 26.9 VOL% (35.7-47.0); Hemoglobin 8.5 GM/DL (12.0-16.0); Immature Granulocytes % 0.9 %; Lymphocytes # 4.2 10*3/uL (1.4-4.0); Lymphocytes % 36.5 % (21.3-54.2); Mean Corpuscular HGB Conc 31.6 GM/DL (32-36); Mean Corpuscular Volume 93.1 FL (87-102); Mean Platelet Volume 9.6 FL (9.6-12.0); Monocytes # 0.7 10*3/uL (0.11-0.8); Monocytes % 6.1 % (1.7-12.7); Neutrophils % 50.1 % (38.7-73.9); Platelet Count 270 T/CUMM (130-400); Red Blood Count 2.89 MC/CUMM (3.8-5.5); Red Cell Distribution Width 14.6 % (9.3-17.3); White Blood Count 11.5 T/CUMM (4-12)
[2021-08-12 05:08] LABS: Alanine Aminotransferase 26 U/L (13-56); Albumin 2.8 G/DL (3.4-5.0); Alkaline Phosphatase 44 U/L (45-117); Aspartate Amino Transferase 20 U/L (0-37); Bilirubin,Total < 0.39 MG/DL (0.20-1.00); Blood Urea Nitrogen 12 MG/DL (7-18); Calcium 8.8 MG/DL (8.5-10.1); Carbon Dioxide 31 MMOL/L (21-32); Chloride 106 MMOL/L (98-107); Glucose 129 MG/DL (74-106); Osmolality,Calculated 280.4 MOS/KG (273-304); Potassium 3.8 MMOL/L (3.5-5.1); Sodium 140 MMOL/L (136-145); Total Protein 6.7 G/DL (6.4-8.2)
[2021-08-12 05:10] LABS: Bilirubin,Indirect 0.3 MG/DL (0.0-1.0)
[2021-08-12] MEDS: POTASSIUM CHLORIDE 20 MEQ TABLET PO PRN ×2 (05:19→08:17)
[2021-08-12] MEDS: INSULIN LISPRO 100 UNIT/ML SUBCUT SCH ×2 (08:09→11:36)
[2021-08-12] MEDS: DIVALPROEX 500 MG TABLET PO SCH (08:15)
[2021-08-12] MEDS: LEVOTHYROXINE 75 MCG TABLET PO SCH (08:15)
[2021-08-12] MEDS: PIOGLITAZONE 15 MG TABLET PO SCH (08:15)
[2021-08-12] MEDS: FERROUS SULFATE 325 MG TABLET PO SCH (08:15)
[2021-08-12] MEDS: PANTOPRAZOLE 40 MG TABLET PO SCH (08:15)
[2021-08-12] MEDS: metFORMIN 850 MG TABLET PO SCH (08:16)
[2021-08-12] MEDS: METOPROLOL SUCCINATE XL 25 MG TABLET PO SCH (08:16)
[2021-08-12] MEDS: CITALOPRAM 40 MG TABLET PO SCH (08:16)
[2021-08-12] MEDS: GABAPENTIN 300 MG CAPSULE PO SCH (08:16)
[2021-08-12] MEDS: ASPIRIN EC 81 MG TABLET PO SCH (08:16)
[2021-08-12] MEDS: DOCUSATE SODIUM 100 MG CAPSULE PO SCH (08:16)
[2021-08-12] MEDS: POLYETHYLENE GLYCOL POWDER 17 GM PACK PO SCH ×2 (08:17→08:21)
[2021-08-12] MEDS: DILTIAZEM CD 120 MG CAPSULE PO SCH (08:17)
[2021-08-12] MEDS: CHLORHEXIDINE 0.12% ORAL RINSE 60 ML BOTTLE SWISH/SPIT SCH (08:17)
[2021-08-12 08:18] VITALS: BP 115/57
[2021-08-12] MEDS: risperiDONE 1 MG TABLET PO SCH (08:39)
== END 2021-08-12 13:32 | disposition home health service (06) | DRG 236 ==
LOC: N.5E 11:55 → N.CVR 08-06 10:55 → N.ICU 08-07 14:13

== ENCOUNTER 2021-08-23 18:24 | Observation (INO) ==
[2021-08-23] MEDS ORDERED: SODIUM CHLORIDE 0.9% 500 ML IV STA (19:21)
[2021-08-23] MEDS ORDERED: ONDANSETRON 4 MG/2 ML VIAL IV STA (19:23)
[2021-08-23 19:58] LABS: Basophils # 0.1 10*3/uL (0.0-0.2); Basophils % 0.8 % (0.0-0.8); Eosinophils % 8.8 % (0.00-10.9); Hematocrit 27.5 VOL% (35.7-47.0); Hemoglobin 8.5 GM/DL (12.0-16.0); Immature Granulocytes % 0.5 %; Immature Granulocytes Absolute 0.06 #; Lymphocytes # 4.4 10*3/uL (1.4-4.0); Mean Corpuscular HGB Conc 30.9 GM/DL (32-36); Mean Corpuscular Volume 94.8 FL (87-102); Mean Platelet Volume 9.2 FL (9.6-12.0); Monocytes # 0.6 10*3/uL (0.11-0.8); Monocytes % 4.8 % (1.7-12.7); NRBC # 0.02 10*3/uL; Neutrophils % 48.1 % (38.7-73.9); Platelet Count 328 T/CUMM (130-400); Red Cell Distribution Width 16.6 % (9.3-17.3); White Blood Count 11.8 T/CUMM (4-12)
[2021-08-23 20:21] LABS: Alanine Aminotransferase 18 U/L (13-56); Albumin 3.3 G/DL (3.4-5.0); Alkaline Phosphatase 50 U/L (45-117); Aspartate Amino Transferase 17 U/L (0-37); Bilirubin,Total < 0.39 MG/DL (0.20-1.00); Blood Urea Nitrogen 15 MG/DL (7-18); Calcium 8.1 MG/DL (8.5-10.1); Carbon Dioxide 22 MMOL/L (21-32); Chloride 112 MMOL/L (98-107); Glucose 145 MG/DL (74-106); Osmolality,Calculated 289.8 MOS/KG (273-304); Potassium 3.8 MMOL/L (3.5-5.1); Sodium 144 MMOL/L (136-145); Total Protein 7.1 G/DL (6.4-8.2)
[2021-08-23] MEDS ORDERED: ZALEPLON 5 MG CAPSULE PO PRN (21:39)
[2021-08-23] MEDS ORDERED: ALBUTEROL/IPRATROPIUM 3 ML NEB RESP TX PRN (21:39)
[2021-08-23] MEDS ORDERED: NICOTINE 21 MG/24 HR PATCH TRANSDERM PRN (21:39)
[2021-08-23] MEDS ORDERED: hydrALAZINE 20 MG/1 ML VIAL IV PRN (21:39)
[2021-08-23] MEDS ORDERED: guaiFENesin/DM ER 600-30 MG TABLET PO PRN (21:39)
[2021-08-23] MEDS ORDERED: GLUCAGON 1 MG VIAL IM PRN ×2 (21:39)
[2021-08-23] MEDS ORDERED: DEXTROSE 50% 25 GM/50 ML VIAL IV PRN (21:39)
[2021-08-23] MEDS ORDERED: diphenhydrAMINE CAP 25 MG CAPSULE PO PRN (21:39)
[2021-08-23] MEDS ORDERED: ONDANSETRON 4 MG/2 ML VIAL IV PRN (21:39)
[2021-08-23] MEDS ORDERED: DEXTROSE 10% 250 ML BAG IV PRN (21:50)
[2021-08-23] MEDS ORDERED: HEPARIN 5,000 UNIT/1 ML VIAL SUBCUT SCH (22:00)
[2021-08-24 02:25] LABS: Basophils # 0.1 10*3/uL (0.0-0.2); Basophils % 0.5 % (0.0-0.8); Eosinophils # 0.3 10*3/uL (0.0-0.87); Eosinophils % 2.3 % (0.00-10.9); Hematocrit 26.2 VOL% (35.7-47.0); Immature Granulocytes % 0.4 %; Immature Granulocytes Absolute 0.05 #; Lymphocytes # 4.2 10*3/uL (1.4-4.0); Lymphocytes % 32.7 % (21.3-54.2); Mean Corpuscular HGB Conc 30.5 GM/DL (32-36); Mean Corpuscular Volume 95.3 FL (87-102); Mean Platelet Volume 8.7 FL (9.6-12.0); Monocytes # 0.8 10*3/uL (0.11-0.8); Monocytes % 6.1 % (1.7-12.7); Platelet Count 296 T/CUMM (130-400); Red Blood Count 2.75 MC/CUMM (3.8-5.5); Red Cell Distribution Width 16.8 % (9.3-17.3); White Blood Count 12.9 T/CUMM (4-12)
[2021-08-24 02:45] LABS: Calcium 8.6 MG/DL (8.5-10.1); Osmolality,Calculated 285.1 MOS/KG (273-304); Potassium 4.3 MMOL/L (3.5-5.1)
[2021-08-24] MEDS: ACETAMINOPHEN 325 MG TABLET PO PRN ×2 (03:25→15:56)
[2021-08-24] MEDS ORDERED: ENOXAPARIN 100 MG/ML SYRINGE SUBCUT ONE (08:00)
[2021-08-24] MEDS ORDERED: FERROUS SULFATE 325 MG TABLET PO SCH (09:00)
[2021-08-24] MEDS: ASPIRIN EC 81 MG TABLET PO SCH (10:21)
[2021-08-24] MEDS: ATORVASTATIN 40 MG TABLET PO SCH (10:22)
[2021-08-24] MEDS: LEVOTHYROXINE 75 MCG TABLET PO SCH (10:22)
[2021-08-24] MEDS: DIVALPROEX 500 MG TABLET PO SCH ×2 (10:22→21:53)
[2021-08-24] MEDS: INSULIN LISPRO 100 UNIT/ML SUBCUT SCH ×4 (10:22→21:54)
[2021-08-24 12:40] LABS: % Iron Saturation 14.4 % (18-50); Ferritin 203.4 ng/mL (8-252)
[2021-08-24 13:25] LABS: Folate 10.48 NG/ML (5.38-24.0)
[2021-08-24] MEDS ORDERED: RIVAROXABAN 10 MG TABLET PO SCH (17:00)
[2021-08-24] MEDS: FERROUS SULFATE 325 MG TABLET PO SCH (21:53)
[2021-08-25 04:37] LABS: Basophils # 0.1 10*3/uL (0.0-0.2); Basophils % 0.6 % (0.0-0.8); Eosinophils # 0.5 10*3/uL (0.0-0.87); Eosinophils % 4.5 % (0.00-10.9); Hematocrit 25.7 VOL% (35.7-47.0); Hemoglobin 7.9 GM/DL (12.0-16.0); Immature Granulocytes % 0.4 %; Immature Granulocytes Absolute 0.04 #; Lymphocytes # 4.3 10*3/uL (1.4-4.0); Mean Corpuscular HGB Conc 30.7 GM/DL (32-36); Mean Corpuscular Volume 94.8 FL (87-102); Mean Platelet Volume 9.6 FL (9.6-12.0); Monocytes # 0.7 10*3/uL (0.11-0.8); Monocytes % 6.5 % (1.7-12.7); NRBC # 0.02 10*3/uL; Platelet Count 296 T/CUMM (130-400); Red Blood Count 2.71 MC/CUMM (3.8-5.5); Red Cell Distribution Width 16.9 % (9.3-17.3); White Blood Count 10.5 T/CUMM (4-12)
[2021-08-25 05:06] LABS: Blood Urea Nitrogen 16 MG/DL (7-18); Calcium 8.6 MG/DL (8.5-10.1); Carbon Dioxide 25 MMOL/L (21-32); Chloride 110 MMOL/L (98-107); Glucose 125 MG/DL (74-106); Osmolality,Calculated 282.3 MOS/KG (273-304); Potassium 3.8 MMOL/L (3.5-5.1); Sodium 141 MMOL/L (136-145)
[2021-08-25] MEDS: LEVOTHYROXINE 75 MCG TABLET PO SCH (06:45)
[2021-08-25] MEDS: DIVALPROEX 500 MG TABLET PO SCH (08:36)
[2021-08-25] MEDS: ATORVASTATIN 40 MG TABLET PO SCH (08:36)
[2021-08-25] MEDS: ASPIRIN EC 81 MG TABLET PO SCH (08:36)
[2021-08-25] MEDS: FERROUS SULFATE 325 MG TABLET PO SCH (08:37)
[2021-08-25] MEDS ORDERED: METOPROLOL SUCCINATE XL 25 MG TABLET PO SCH (09:00)
[2021-08-25] MEDS ORDERED: CHOLECALCIFEROL 1,000 UNIT TABLET PO SCH (09:00)
[2021-08-25] MEDS: INSULIN LISPRO 100 UNIT/ML SUBCUT SCH ×2 (10:11→11:38)
[2021-08-25] MEDS: ACETAMINOPHEN 325 MG TABLET PO PRN (10:11)
[2021-08-25 11:40] VITALS: BP 109/69
== END 2021-08-25 15:27 | disposition home health service (06) ==
LOC: EDUNIT# → EDBD → N.ED 18:24 → N.EDINP 18:24 → N.TELEN 22:48 → SUATTDRO 08-24 17:25
PROVIDERS: ADMIT Internal Medicine Geriatric Medicine; ATTEND Emergency Medicine